=== PATIENT | female | born 1960 | race Caucasian/White ===

== ENCOUNTER 2018-03-28 09:56 | Day surgery (SDC) | payer BC ==
[2018-03-28 10:32] VITALS: BMI 24.4
[2018-03-28 13:03] VITALS: BP 110/60; PULSE 64; TEMP 98
== END 2018-03-28 12:30 | disposition home or self-care (01) ==
LOC: JASU-ENDO 09:56
PROVIDERS: ATTEND Internal Medicine Gastroenterology
PROC: 0DJD8ZZ Inspection of Lower Intestinal Tract, Via Natural or Artificial Opening Endoscopic (ICD-10-PCS; principal; 2018-03-28 10:45)
DX: Z12.11 Encounter for screening for malignant neoplasm of colon (principal); K64.8 Other hemorrhoids; K57.30 Diverticulosis of large intestine without perforation or abscess without bleeding; K63.89 Other specified diseases of intestine; Z80.0 Family history of malignant neoplasm of digestive organs

== ENCOUNTER → 2023-05-24 | Day surgery (SDC) | payer OTHER ==
[2023-05-19 12:34] VITALS: BMI 25.6
[2023-05-24 09:22] VITALS: TEMP 98
[2023-05-24 09:38] VITALS: RESP 20
[2023-05-24 09:58] VITALS: BP 120/80; PULSE 58
== END | disposition home or self-care (01) ==
LOC: JASU-ENDO 04:52
PROVIDERS: ATTEND Internal Medicine Gastroenterology
PROC: 0DJD8ZZ Inspection of Lower Intestinal Tract, Via Natural or Artificial Opening Endoscopic (ICD-10-PCS; principal; 2023-05-24 09:00)
DX: Z12.11 Encounter for screening for malignant neoplasm of colon (principal); K57.30 Diverticulosis of large intestine without perforation or abscess without bleeding; K64.8 Other hemorrhoids